=== PATIENT | male | born 1995 | race Caucasian/White ===

== ENCOUNTER 2017-11-27 14:49 | Emergency (ER) | payer BC ==
--- NOTE | 2017-11-27 17:17 | EDM.PDOC ---
ED HPI GENERAL MEDICAL PROBLEM - General Chief Complaint: ENT Problem Stated Complaint: RT EAR PAIN Time Seen by Provider: 11/27/17 16:50 Source of Information: Reports: Patient History Limitations: Reports: No Limitations - History of Present Illness INITIAL COMMENTS - FREE TEXT/NARRATIVE: Patient presents with complaints of right ear pain and discharge for three days. He denies injury, foreign object or trauma to the ear. - Related Data Allergies Allergy/AdvReac Type Severity Reaction Status Date / Time No Known Allergies Allergy Verified 11/27/17 15:56 Home Meds: Home Meds NK [No Known Home Meds] 11/27/17 [History] Past Medical History - Infectious Disease History Infectious Disease History: Reports: Chicken Pox Social & Family History - Caffeine Use Caffeine Use: Reports: Coffee, Soda - Recreational Drug Use Recreational Drug Use: No ED ROS ENT - Review of Systems Review Of Systems: See Below Constitutional: Denies: Fever, Chills, Malaise, Weakness HEENT: Reports: Ear Discharge, Ear Pain, Other (Right ear pain, discharge. ). Denies: Rhinitis, Sinus Problem, Throat Pain, Throat Swelling, Vertigo Respiratory: Reports: No Symptoms Cardiovascular: Reports: No Symptoms Endocrine: Reports: No Symptoms GI/Abdominal: Reports: No Symptoms Musculoskeletal: Reports: No Symptoms Skin: Denies: Bruising, Rash, Erythema, Lumps Neurological: Reports: No Symptoms Psychiatric: Reports: No Symptoms Hematologic/Lymphatic: Reports: No Symptoms Immunologic: Reports: No Symptoms ED EXAM, ENT - Physical Exam Exam: See Below Text/Narrative:: Callum presents today for complaints of right ear pain and drainage for 3 days. He reports the drainage started as brown/yellow and is more clear now. He reports last ear infection 9 or more years ago. Exam Limited By: No Limitations General Appearance: Alert, WD/WN, Mild Distress Eye Exam: Bilateral Eye: EOMI, Normal Inspection, PERRL Ears: Hearing Loss, Auricular Tenderness, Canal Swelling, TM Dullness, TM Erythema, TM Fluid, Other (Of right TM/ear). No: Mastoid Swelling, Mastoid Tenderness Nose: Normal Inspection, Normal Mucousa, No Blood Mouth/Throat: Normal Inspection, Normal Gums, Normal Lips, Normal Oropharynx, Normal Teeth Head: Atraumatic, Normocephalic Neck: Normal Inspection, Supple, Non-Tender, Full Range of Motion. No: Lymphadenopathy (R), Lymphadenopathy (L) Respiratory/Chest: No Respiratory Distress, Lungs Clear, Normal Breath Sounds, No Accessory Muscle Use, Chest Non-Tender Cardiovascular: Normal Peripheral Pulses, Regular Rate, Rhythm, No Edema, No Murmur, No Rub Back: Normal Inspection, Full Range of Motion. No: CVA Tenderness (R), CVA Tenderness (L) Extremities: Normal Inspection, Normal Range of Motion, Non-Tender, No Pedal Edema, Normal Capillary Refill Neurological: Alert, Oriented, CN II-XII Intact, Normal Cognition, Normal Gait, Normal Reflexes, No Motor/Sensory Deficits Psychiatric: Normal Affect, Normal Mood Skin: Warm, Dry, Intact, Normal Color, No Rash Lymphatic: No Adenopathy Course - Vital Signs Last Recorded V/S: Last Vital Signs Temp 36.6 C 11/27/17 16:03 Pulse 85 11/27/17 16:03 Resp 16 11/27/17 16:03 BP 144/90 H 11/27/17 16:03 Pulse Ox 98 11/27/17 16:03 - Orders/Labs/Meds Meds: Medications Discontinued Medications Generic Name Dose Route Start Last Admin Trade Name Freq PRN Reason Stop Dose Admin Methylprednisolone Sodium Succinate 125 mg 11/27/17 17:25 11/27/17 17:29 Solu-Medrol IM 11/27/17 17:26 125 mg ONETIME ONE Administration Departure - Departure Time of Disposition: 17:26 Disposition: Home, Self-Care 01 Condition: Good Clinical Impression: Otitis externa - Discharge Information Instructions: Otitis Externa, [id number] Referrals: PCP,None [Primary Care Provider] - Forms: ED Department Discharge Additional Instructions: You have been evaluated and treated for moderate right otitis externa. You were given solumedrol 125mg IM in the emergency room. A prescription for ciprodex ear drops telephoned in for you to [facility]. Take ibuprofen and acetaminophen for pain as needed. Follow up with a primary provider in 14 days for a recheck. Return for worsening, issues or concerns. - Assessment/Plan Assessment:: Right otitis externa Plan: Patient evaluated and treated for moderate right otitis externa. He was given solumedrol 125mg IM in the emergency room. A prescription for ciprodex ear drops telephoned in for him to [facility]. Take ibuprofen and acetaminophen for pain as needed. Follow up with a primary provider in 14 days for a recheck. Return for worsening, issues or concerns.
[2017-11-27] MEDS ORDERED: methylPREDNISolone Sodium Succinate 125 MG/2 ML SDV IM ONE (17:25)
== END 2017-11-27 17:40 | disposition home or self-care (01) ==
LOC: JP.ED 14:49
DX: H60.91 Unspecified otitis externa, right ear (principal)
CPT/HCPCS: 96372; 99283; J2930